=== PATIENT | male | born 1990 | race Hispanic/Latino ===

== ENCOUNTER 2017-11-23 07:47 | Emergency (ER) | payer SELFPAY ==
[2017-11-23] MEDS ORDERED: ACETAMINOPHEN 325 MG TAB ONE (08:45)
[2017-11-23] MEDS ORDERED: CLINDAMYCIN 600 MG/D5% WATER 50 ML IV ONE (08:45)
== END 2017-11-23 10:43 | disposition home or self-care (01) ==
LOC: EDH 07:47
DX: K13.0 Diseases of lips (principal); Z72.0 Tobacco use
CPT/HCPCS: 96365; 96366; 99285; J3490

== ENCOUNTER 2017-11-24 17:21 | Inpatient (IN) | payer SELFPAY ==
[~2017-11-24] VITALS: Ht 180.3 cm; Wt 107.5 kg
[2017-11-24] MEDS ORDERED: KETOROLAC TROMETHAMINE 15MG/ML ONE (17:59)
[2017-11-24] MEDS ORDERED: CLINDAMYCIN 600 MG/D5% WATER 50 ML IV ONE (17:59)
[2017-11-24] MEDS ORDERED: SODIUM CHLORIDE 0.9% 1000ML 1,000 ML IV ONE (17:59)
[2017-11-24 18:18] LABS: BASOPHILS % (AUTO) 0.3 % (0.0-5.0); EOSINOPHILS % (AUTO) 0.5 % (0.0-8.0); HEMATOCRIT 45.6 % (42-54); LYMPHOCYTES % (AUTO) 15.7 % (21.0-51.0); MEAN CORPUSCULAR HEMOGLOBIN 32.3 pg (27.0-33.0); MEAN CORPUSCULAR HGB CONC 34.6 g/dL (32.0-36.0); MEAN CORPUSCULAR VOLUME 93.1 fL (79-99); MONOCYTES % (AUTO) 6.8 % (3.0-13.0); NEUTROPHILS % (AUTO) 76.7 % (40.0-77.0); PLATELET COUNT (AUTO) 278 K/uL (130-400); RED CELL DISTRIBUTION WIDTH 13.2 % (11.0-15.5); WHITE BLOOD COUNT (AUTO) 20.1 K/uL (4.8-10.8)
[2017-11-24 19:11] LABS: POTASSIUM 3.9 mmol/L (3.5-5.1)
[2017-11-24 19:17] LABS: ALBUMIN 3.5 g/dL (3.5-5.0); BILIRUBIN,TOTAL 0.6 mg/dL (0.2-1.0); TOTAL PROTEIN, SERUM 7.8 g/dL (6.0-8.3)
[2017-11-24] MEDS ORDERED: ONDANSETRON HCL 4 MG/2 ML VIAL IVP PRN (21:00)
[2017-11-25 00:13] VITALS: BP 132/86
[2017-11-25] MEDS: MORPHINE SULFATE 2 MG/ML 1ML SYG IVP PRN ×4 (00:17→22:43)
[2017-11-25] MEDS: CLINDAMYCIN 600 MG/D5% WATER 50 ML IV SCH ×2 (01:56→09:34)
[2017-11-25] MEDS ORDERED: HYDROMORPHONE 1 MG/1 ML AMP IVP ONE (02:30)
[2017-11-25] MEDS ORDERED: HYDROMORPHONE HCL 0.5 MG/0.5 ML ML ONE (02:35)
[2017-11-25] MEDS ORDERED: HYDROMORPHONE HCL 2 MG/ML VIAL IVP ONE (02:45)
[2017-11-25 03:56] VITALS: BP 127/86
[2017-11-25] MEDS ORDERED: FLU VACC QS2017-18 36MOS UP/PF 60 MCG/0.5 ML ML IM ONE (06:30)
[2017-11-25 08:00] VITALS: BP 127/84
[2017-11-25 11:00] VITALS: BP 137/73
[2017-11-25 16:00] VITALS: BP 139/84
[2017-11-25] MEDS ORDERED: VANCOMYCIN PROTOCOL PER PHARMACY IV SCH (16:00)
[2017-11-25] MEDS ORDERED: VANCOMYCIN 1.5 GM in SODIUM CHLORIDE 0.9% 250 ML IV SCH (16:14)
[2017-11-25] MEDS ORDERED: COMPOUND IV REFRIGERATED 1 EACH IVSOLN MISC PRN (16:15)
[2017-11-25] MEDS ORDERED: VANCOMYCIN 1GM+NS 250ML 250 ML IV ONE (16:34)
[2017-11-25 20:00] VITALS: BP 121/81
[2017-11-26] VITALS: BP 126/74
[2017-11-26] MEDS: MORPHINE SULFATE 2 MG/ML 1ML SYG IVP PRN ×4 (03:24→21:34)
[2017-11-26 04:00] VITALS: BP 125/76
[2017-11-26] MEDS: VANCOMYCIN 1.5 GM in SODIUM CHLORIDE 0.9% 250 ML IV SCH ×3 (05:55→23:19)
[2017-11-26 08:00] VITALS: BP 134/72
[2017-11-26 16:00] VITALS: BP 123/72
[2017-11-26 20:00] VITALS: BP 122/82
[2017-11-26 23:28] VITALS: BP 154/83
[2017-11-27 03:48] VITALS: BP 120/75
[2017-11-27] MEDS: MORPHINE SULFATE 2 MG/ML 1ML SYG IVP PRN ×2 (03:58→23:12)
[2017-11-27] MEDS: VANCOMYCIN 1.75 GM in SODIUM CHLORIDE 0.9% 250 ML IV SCH ×3 (07:49→23:12)
[2017-11-27 08:00] VITALS: BP 130/79
[2017-11-27 08:48] LABS: HEMATOCRIT 44.9 % (42-54); MEAN CORPUSCULAR HGB CONC 34.3 g/dL (32.0-36.0); MEAN CORPUSCULAR VOLUME 93.3 fL (79-99); PLATELET COUNT (AUTO) 274 K/uL (130-400); RED BLOOD CELL COUNT(AUTO) 4.81 MIL/uL (4.50-6.20); RED CELL DISTRIBUTION WIDTH 13.3 % (11.0-15.5); WHITE BLOOD COUNT (AUTO) 9.1 K/uL (4.8-10.8)
[2017-11-27 09:29] LABS: BASOPHILS % (MANUAL) 1 % (0-2); EOSINOPHILS % (MANUAL) 2 % (1-6); LYMPHOCYTES % (MANUAL) 39 % (22-44); MONOCYTES % (MANUAL) 10 % (2-9); SEGMENTED NEUTROPHILS % 48 % (40-70)
[2017-11-27 09:30] LABS: MAN.DIFF COMMENT-IMPRESSION MANUAL DIFFERENTIAL; PLATELET MORPHOLOGY COMMENT ADEQUATE
[2017-11-27 11:00] VITALS: BP 129/75
[2017-11-27 16:00] VITALS: BP 139/77
[2017-11-27 20:00] VITALS: BP 127/69
[2017-11-28] VITALS: BP 126/76
[2017-11-28 04:00] VITALS: BP 112/70
[2017-11-28] MEDS: VANCOMYCIN 1.75 GM in SODIUM CHLORIDE 0.9% 250 ML IV SCH ×2 (06:38→14:00)
[2017-11-28 07:30] VITALS: BP 129/57
[2017-11-28] MEDS: FLU VACC QS2017-18 36MOS UP/PF 60 MCG/0.5 ML ML IM ONE ×2 (09:26→10:04)
[2017-11-28 11:00] VITALS: BP 111/63
== END 2017-11-28 15:10 | disposition left against medical advice (07) | DRG 872 ==
LOC: EDH 17:21 → EDHIP 20:19 → 3DH 23:04
PROVIDERS: ADMIT Family Medicine; ATTEND Family Medicine
PROC: 3E0234Z Introduction of Serum, Toxoid and Vaccine into Muscle, Percutaneous Approach (ICD-10-PCS; principal; 2017-11-24)
DX: A41.9 Sepsis, unspecified organism (principal); E66.9 Obesity, unspecified; L02.01 Cutaneous abscess of face; L03.211 Cellulitis of face; K13.0 Diseases of lips; Z68.33 Body mass index [BMI] 33.0-33.9, adult; Z23 Encounter for immunization
CPT/HCPCS: 36415; 70487; 80053; 80202; 85025; 87070; 87077; 87186; G0008; J1170; J1885; J3370; J3490; J7030; Q2038